=== PATIENT | female | born 1980 | race African-American/Black ===

== ENCOUNTER → 2016-10-17 | Outpatient (CLI) | payer MEDICAID ==
[~2016-10-17] MED LIST: BENADRYL25 M1 PO; CORTISONE60 GM TOP
--- NOTE | ~2016-10-17 | CR282 ---
[facility]. [facility] A Service of [facility] & [facility] RADIOLOGY TEXT RESULTS PATIENT: GIORGI FONTANA LOCATION: SRA : 80 UNIT #: [id number] AGE: [address]: Braden Gilmore MD SEX: F ORDER DR: [id number] [place] [id number] O MR#: [id number] Acc #: [id number] NAME: GIORGI FONTANA : 1980 SEX: F STUDY DATE/TIME: 10/17/2016 13:37 UNIT: SRAD ROOM: STUDY DESCRIPTION: CR Wrist Min 3 View Rt Attending Physician: Braden Gilmore M.D. Referring Physician: Braden Gilmore M.D. Ordering Physician: Braden Gilmore M.D. Primary Care Physician: Braden Gilmore M.D. MEDICAL IMAGING REPORT This report is preliminary unless electronic signature is present. EXAM Right wrist 3 views INDICATIONS 36-year-old female with right wrist pain since June. COMPARISON No comparisons. FINDINGS No fracture. Carpal alignment maintained. Soft tissue structures are unremarkable. IMPRESSION Negative Dictated by... Marciano Reeves M.D. THIS IS AN ELECTRONICALLY VERIFIED REPORT Marciano Reeves M.D. at 10/18/2016 9:08 AM ARS/to TD: 10/17/2016 15:39 JOB #: [id number] MEDICAL IMAGING REPORT Page 1 of 1
== END | disposition home or self-care (01) ==
LOC: SRAD 13:29
DX: M25.531 Pain in right wrist (principal)
CPT/HCPCS: 73110

== ENCOUNTER 2017-02-08 18:31 | Emergency (ER) | payer MEDICAID ==
[2017-02-08] MEDS ORDERED: BENADRYL25 M1 PO (20:15)
[2017-02-08] MEDS ORDERED: CORTISONE60 GM TOP (20:15)
== END 2017-02-08 20:15 | disposition home or self-care (01) ==
LOC: SED 18:31
DX: S60.561A Insect bite (nonvenomous) of right hand, initial encounter (principal); Z79.899 Other long term (current) drug therapy; W57.XXXA Bitten or stung by nonvenomous insect and other nonvenomous arthropods, initial encounter
CPT/HCPCS: 99282